=== PATIENT | female | born 1995 | race Two or more races ===

== ENCOUNTER → 2020-04-29 12:08 | Outpatient (CLI) | payer OTHER | END | disposition home or self-care (01) | LOC: LAB 12:08 | PROVIDERS: ATTEND Emergency Medicine Pediatric Emergency Medicine | DX: Z03.818 Encounter for observation for suspected exposure to other biological agents ruled out (principal) ==

== ENCOUNTER 2021-05-12 09:00 | Outpatient (CLI) | payer OTHER | END 2021-05-12 09:15 | disposition home or self-care (01) | LOC: PPH VACUNA 09:00 | PROVIDERS: ATTEND Emergency Medicine Pediatric Emergency Medicine | DX: Z23 Encounter for immunization (principal) ==

== ENCOUNTER 2021-07-15 09:00 | Outpatient (CLI) | payer OTHER | END 2021-07-15 09:15 | disposition home or self-care (01) | LOC: PPH VACUNA 09:00 | PROVIDERS: ATTEND Emergency Medicine Pediatric Emergency Medicine | DX: Z23 Encounter for immunization (principal) ==

== ENCOUNTER 2021-08-11 12:47 | Outpatient (CLI) | payer OTHER | END 2021-08-11 12:49 | disposition home or self-care (01) | LOC: RAD 12:47 | PROVIDERS: ATTEND Plastic Surgery Surgery of the Hand | DX: Z01.818 Encounter for other preprocedural examination (principal) ==

== ENCOUNTER 2021-08-15 06:15 | Outpatient (CLI) | payer OTHER | END 2021-08-15 06:16 | disposition home or self-care (01) | LOC: LAB 06:15 | PROVIDERS: ATTEND Plastic Surgery Surgery of the Hand | DX: D68.8 Other specified coagulation defects (principal); E83.51 Hypocalcemia; B97.89 Other viral agents as the cause of diseases classified elsewhere ==

== ENCOUNTER 2021-08-16 11:38 | Outpatient (CLI) | payer OTHER | END 2021-08-16 12:00 | disposition home or self-care (01) | LOC: MAMO-SONO 11:38 | PROVIDERS: ATTEND Plastic Surgery Surgery of the Hand | DX: N62 Hypertrophy of breast (principal) ==

== ENCOUNTER 2021-08-17 07:33 | Outpatient (CLI) | payer OTHER | END 2021-08-17 07:40 | disposition home or self-care (01) | LOC: LAB 07:33 | DX: N39.0 Urinary tract infection, site not specified (principal) ==

== ENCOUNTER 2021-08-19 07:06 | Outpatient (CLI) | payer OTHER | END 2021-08-19 07:15 | disposition home or self-care (01) | LOC: LAB 07:06 | DX: N39.0 Urinary tract infection, site not specified (principal) ==

== ENCOUNTER 2021-08-22 07:45 | Outpatient (CLI) | payer OTHER | END 2021-08-22 07:51 | disposition home or self-care (01) | LOC: LAB 07:45 | DX: N39.0 Urinary tract infection, site not specified (principal) ==

== ENCOUNTER 2022-04-25 15:00 | Outpatient (CLI) | payer OTHER | END 2022-04-25 15:05 | disposition home or self-care (01) | LOC: PPH VACUNA 15:00 | PROVIDERS: ATTEND Emergency Medicine Pediatric Emergency Medicine | DX: Z23 Encounter for immunization (principal) ==

== ENCOUNTER 2022-05-30 06:31 | Outpatient (CLI) | payer OTHER | END 2022-05-30 06:34 | disposition home or self-care (01) | LOC: LAB 06:31 | PROVIDERS: ATTEND Pediatrics Neonatal-Perinatal Medicine | DX: D50.8 Other iron deficiency anemias (principal); E16.2 Hypoglycemia, unspecified; E07.9 Disorder of thyroid, unspecified ==

== ENCOUNTER 2022-07-24 07:46 | Outpatient (CLI) | payer OTHER | END 2022-07-24 07:56 | disposition home or self-care (01) | LOC: LAB 07:46 | PROVIDERS: ATTEND Obstetrics & Gynecology | DX: Z00.00 Encounter for general adult medical examination without abnormal findings (principal); I10 Essential (primary) hypertension; E03.9 Hypothyroidism, unspecified; E78.00 Pure hypercholesterolemia, unspecified; N39.0 Urinary tract infection, site not specified; Z11.4 Encounter for screening for human immunodeficiency virus [HIV]; E55.9 Vitamin D deficiency, unspecified; Z21 Asymptomatic human immunodeficiency virus [HIV] infection status; R79.9 Abnormal finding of blood chemistry, unspecified; R79.89 Other specified abnormal findings of blood chemistry ==

== ENCOUNTER 2022-07-25 12:15 | Outpatient (CLI) | payer OTHER | END 2022-07-25 12:19 | disposition home or self-care (01) | LOC: RAD 12:15 | DX: M99.01 Segmental and somatic dysfunction of cervical region (principal); M99.02 Segmental and somatic dysfunction of thoracic region; M99.03 Segmental and somatic dysfunction of lumbar region; M99.04 Segmental and somatic dysfunction of sacral region; M99.05 Segmental and somatic dysfunction of pelvic region ==

== ENCOUNTER 2022-07-25 21:32 | Emergency (ER) | payer OTHER ==
[~2022-07-25] VITALS: Ht 149.9 cm; Wt 54.4 kg
== END 2022-07-26 00:32 | disposition home or self-care (01) ==
LOC: ER 21:32
DX: S61.042A Puncture wound with foreign body of left thumb without damage to nail, initial encounter (principal); W26.9XXA Contact with unspecified sharp object(s), initial encounter; Y93.F9 Activity, other caregiving; Y92.239 Unspecified place in hospital as the place of occurrence of the external cause

== ENCOUNTER → 2022-09-20 06:18 | Outpatient (CLI) | payer OTHER | END | disposition home or self-care (01) | LOC: LAB 06:18 | DX: E03.9 Hypothyroidism, unspecified (principal) ==

== ENCOUNTER 2022-09-25 12:36 | Outpatient (CLI) | payer OTHER | END 2022-09-25 12:45 | disposition home or self-care (01) | LOC: SONOGRAMA 12:36 | DX: E03.9 Hypothyroidism, unspecified (principal) ==

== ENCOUNTER → 2023-03-01 | Outpatient (CLI) | payer OTHER | END | disposition home or self-care (01) | LOC: PPH VACUNA | PROVIDERS: ATTEND Emergency Medicine Pediatric Emergency Medicine | DX: Z23 Encounter for immunization (principal) ==

== ENCOUNTER 2023-07-05 10:42 | Emergency (ER) | payer OTHER ==
[~2023-07-05] VITALS: Ht 149.9 cm; Wt 56.2 kg
[2023-07-05] MEDS ORDERED: METRONIDAZOLE500 MG PO (15:04)
[2023-07-05] MEDS ORDERED: CIPRO500 MG PO (15:04)
[2023-07-05] MEDS ORDERED: PEPCID AC20 MG PO (15:04)
[2023-07-05] MEDS ORDERED: IBU800 MG PO (15:04)
[2023-07-05 16:00] LABS: HEMATOCRIT 37.8 % (36.0-45.00); HEMOGLOBIN 12.5 g/dL (12.0-15.00); MEAN CORPUSCULAR HEMOGLOBIN 28.6 pg (27.00-32.0); MEAN CORPUSCULAR HGB CONC 32.9 g/dl (32.0-36.0); PLATELET COUNT 261 K/uL (150-450); RED BLOOD COUNT 4.35 M/uL (4.00-6.00); RED CELL DISTRIBUTION WIDTH 13.2 % (11.5-14.5)
== END 2023-07-05 16:14 | disposition home or self-care (01) ==
LOC: ER
PROVIDERS: General Practice
DX: L05.01 Pilonidal cyst with abscess (principal)

== ENCOUNTER → 2023-07-31 07:23 | Outpatient (CLI) | payer OTHER ==
[~2023-07-31 07:23] MED LIST: CIPRO500 MG PO; IBU800 MG PO; METRONIDAZOLE500 MG PO; PEPCID AC20 MG PO
[2023-07-31 08:13] LABS: HEMATOCRIT 36.1 % (36.0-45.00); HEMOGLOBIN 12.1 g/dL (12.0-15.00); MEAN CELL VOLUME 86.7 fL (80.00-100.00); MEAN CORPUSCULAR HGB CONC 33.5 g/dl (32.0-36.0); PLATELET COUNT 272 K/uL (150-450); RED BLOOD COUNT 4.17 M/uL (4.00-6.00); RED CELL DISTRIBUTION WIDTH 12.6 % (11.5-14.5)
[2023-07-31 08:20] LABS: PH,URINE 5.5 (5.0-8.0); URINE APPEARANCE Clear; URINE BILIRRUBIN Negative (NEGATIVE); URINE BLOOD Negative; URINE COLOR Yellow; URINE GLUCOSE Negative (NEGATIVE); URINE LEUKOCYTE Negative; URINE NITRATE Negative; URINE PROTEIN Negative (NEGATIVE); URINE UROBILINOGEN 0.2 E.U./dl
[2023-07-31 08:24] LABS: URINE EPITHELIAL CELLS 2.4 uL (0.0-38.8); URINE RBC 2.1 uL (0.0-20.8); URINE WBC 2.6 uL (0.0-23.2)
[2023-07-31 08:55] LABS: BILIRUBIN TOTAL 0.5 mg/dL (0.3-1.2); CALCIUM 8.8 mg/dL (8.5-10.1); CHOL HDL RATIO 3.8 (0-5.0); CREATININE SERUM 0.82 mg/dL (0.55-1.02); GFR 83.01; GLOBULINA 3.7 G/DL (2.4-3.5); POTASSIUM 3.91 mEq/L (3.5-5.1); T4 FREE 1.13 NG/ML (0.76-1.46); TOTAL PROTEIN 7.7 gm/dL (6.4-8.2); TSH 2.72 uIU/mL (0.358-3.74)
== END | disposition home or self-care (01) ==
LOC: LAB 07:23
PROVIDERS: ATTEND Obstetrics & Gynecology
DX: I10 Essential (primary) hypertension (principal); Z00.00 Encounter for general adult medical examination without abnormal findings; E03.9 Hypothyroidism, unspecified; E78.00 Pure hypercholesterolemia, unspecified; N39.0 Urinary tract infection, site not specified; E55.9 Vitamin D deficiency, unspecified; Z11.4 Encounter for screening for human immunodeficiency virus [HIV]; Z21 Asymptomatic human immunodeficiency virus [HIV] infection status; R79.9 Abnormal finding of blood chemistry, unspecified; R79.89 Other specified abnormal findings of blood chemistry

== ENCOUNTER 2023-08-02 09:41 | Outpatient (CLI) | payer OTHER | END 2023-08-02 09:47 | disposition home or self-care (01) | LOC: SONOGRAMA 09:41 | PROVIDERS: ATTEND Obstetrics & Gynecology | DX: R10.2 Pelvic and perineal pain (principal) ==

== ENCOUNTER 2023-09-17 07:47 | Outpatient (CLI) | payer OTHER | END 2023-09-17 07:48 | disposition home or self-care (01) | LOC: LAB 07:47 | PROVIDERS: ATTEND Obstetrics & Gynecology | DX: Z11.3 Encounter for screening for infections with a predominantly sexual mode of transmission (principal); Z11.59 Encounter for screening for other viral diseases; N90.89 Other specified noninflammatory disorders of vulva and perineum ==

== ENCOUNTER 2023-10-11 13:51 | Outpatient (CLI) | payer OTHER | END 2023-10-11 13:55 | disposition home or self-care (01) | LOC: SONOGRAMA 13:51 | PROVIDERS: ATTEND Internal Medicine Endocrinology, Diabetes & Metabolism | DX: E04.8 Other specified nontoxic goiter (principal) ==

== ENCOUNTER 2024-04-29 09:20 | Outpatient (CLI) | payer OTHER | END 2024-04-29 10:00 | disposition home or self-care (01) | LOC: PPH VACUNA 09:20 | PROVIDERS: ATTEND Emergency Medicine Pediatric Emergency Medicine | DX: Z23 Encounter for immunization (principal) ==

== ENCOUNTER 2024-08-26 07:17 | Outpatient (CLI) | payer OTHER ==
[2024-08-26 08:03] LABS: HEMATOCRIT 37.6 % (36.0-45.00); HEMOGLOBIN 12.2 g/dL (12.0-15.00); MEAN CELL VOLUME 86.7 fL (80.00-100.00); MEAN CORPUSCULAR HEMOGLOBIN 28.1 pg (27.00-32.0); MEAN CORPUSCULAR HGB CONC 32.4 g/dl (32.0-36.0); PLATELET COUNT 275 K/uL (150-450); RED BLOOD COUNT 4.33 M/uL (4.00-6.00); RED CELL DISTRIBUTION WIDTH 12.9 % (11.5-14.5)
[2024-08-26 08:06] LABS: URINE APPEARANCE Clear; URINE BILIRRUBIN Negative (NEGATIVE); URINE BLOOD Negative; URINE COLOR Yellow; URINE GLUCOSE Negative (NEGATIVE); URINE KETONE Negative (NEGATIVE); URINE LEUKOCYTE Negative; URINE NITRATE Negative; URINE PROTEIN Negative (NEGATIVE); URINE UROBILINOGEN 0.2 E.U./dl
[2024-08-26 08:10] LABS: URINE BACTERIA 121.1 uL (0.0-1933); URINE EPITHELIAL CELLS 5.8 uL (0.0-38.8); URINE RBC 8.8 uL (0.0-20.8); URINE WBC 2.5 uL (0.0-23.2)
[2024-08-26 08:53] LABS: ALBUMIN 3.7 gm/dL (3.4-5.0); BILIRUBIN TOTAL 0.4 mg/dL (0.3-1.2); CALCIUM 8.7 mg/dL (8.5-10.1); CHOL HDL RATIO 3.6 (0-5.0); CREATININE SERUM 0.8 mg/dL (0.55-1.02); GFR 84.8; GLOBULINA 3.9 G/DL (2.4-3.5); POTASSIUM 3.92 mEq/L (3.5-5.1); T4 FREE 1.08 NG/ML (0.76-1.46); TOTAL PROTEIN 7.6 gm/dL (6.4-8.2); TSH 3.59 uIU/mL (0.358-3.74)
[2024-08-26 09:12] LABS: URINE CAST 0.29 uL (0.0-1.40)
== END 2024-08-26 07:43 | disposition home or self-care (01) ==
LOC: LAB 07:17
PROVIDERS: ATTEND Obstetrics & Gynecology
DX: N39.0 Urinary tract infection, site not specified (principal); D50.9 Iron deficiency anemia, unspecified; E55.9 Vitamin D deficiency, unspecified; E03.9 Hypothyroidism, unspecified; N97.0 Female infertility associated with anovulation; R22.1 Localized swelling, mass and lump, neck

== ENCOUNTER 2024-09-12 07:39 | Outpatient (CLI) | payer OTHER ==
[2024-09-13 07:04] LABS: hav igm Negative (Negative); hcv Non Reactive (Non Reactive); hep b c Negative (Negative); hep b s ag Negative (Negative)
[2024-09-13 21:11] LABS: chla t Negative (Negative); neiss Negative (Negative)
== END 2024-09-12 07:44 | disposition home or self-care (01) ==
LOC: LAB 07:39
PROVIDERS: ATTEND Obstetrics & Gynecology
DX: A60.00 Herpesviral infection of urogenital system, unspecified (principal); O09.90 Supervision of high risk pregnancy, unspecified, unspecified trimester

== ENCOUNTER 2025-03-26 14:32 | Outpatient (CLI) | payer OTHER | END 2025-03-26 14:40 | disposition home or self-care (01) | LOC: TOM 14:32 | PROVIDERS: ATTEND Otolaryngology | DX: J01.10 Acute frontal sinusitis, unspecified (principal) ==

== ENCOUNTER 2025-03-27 07:34 | Outpatient (CLI) | payer OTHER ==
[2025-03-28 11:07] LABS: VARICELLA ZOSTER VIRUS IGG Reactive (Non Reactive)
== END 2025-03-27 08:03 | disposition home or self-care (01) ==
LOC: LAB 07:34
DX: Z01.84 Encounter for antibody response examination (principal)

== ENCOUNTER 2025-04-28 12:58 | Outpatient (CLI) | payer OTHER | END 2025-04-28 13:02 | disposition home or self-care (01) | LOC: MAMO-SONO 12:58 | PROVIDERS: ATTEND Surgery | DX: N60.11 Diffuse cystic mastopathy of right breast (principal); N60.12 Diffuse cystic mastopathy of left breast ==

== ENCOUNTER 2025-04-30 15:41 | Outpatient (CLI) | payer OTHER | END 2025-04-30 15:51 | disposition home or self-care (01) | LOC: PPH VACUNA 15:41 | PROVIDERS: ATTEND Emergency Medicine Pediatric Emergency Medicine | DX: Z23 Encounter for immunization (principal) ==